=== PATIENT | female | born 2000 | race Hispanic/Latino ===

== ENCOUNTER 2022-08-22 11:50 | Day surgery (SDC) | payer OTHER ==
[2022-08-20 16:02] LABS: Mean Corpuscular HGB CONC 32.3 g/dL (32.0-36.0); Mean Corpuscular Hemoglobin 28.7 pg (27.0-33.0); Mean Corpuscular Volume 88.8 fl (81.6-98.3); Mean Platelet Volume 9.7 fl (7.4-10.4); Platelet Count 370 10x3/uL (150-450); RBC Distribution Width 13.2 % (11.5-14.5); Red Blood Cell (RBC) Count 4.18 10x6/uL (3.90-5.03); White Blood Cell (WBC) Count 7.8 10x3/uL (3.5-10.5)
[2022-08-20 16:17] LABS: BHCG - Serum Negative (NEGATIVE); Pregs Control Background? CLEAR/WHITE (CLR/WHITE); Pregs Control Bar Appear? YES (CONTROL BAR)
[2022-08-21 09:16] VITALS: BMI 35.5
[2022-08-22] MEDS ORDERED: Midazolam HCl 2 mg/2 ml Vial ONE ×3 (12:59→14:10)
[2022-08-22] MEDS ORDERED: Famotidine/PF 20 mg/2ml Vial ONE (13:00)
[2022-08-22] MEDS ORDERED: Scopolamine 1.5 mg/72 hour Patch ONE (13:00)
[2022-08-22] MEDS ORDERED: PROPOFOL 20 ML ONE (13:12)
[2022-08-22] MEDS ORDERED: Bupivacaine HCl 0.5%/Epinephrine 1:200,000/PF 30 ml Vial ONE (13:12)
[2022-08-22] MEDS ORDERED: Fentanyl 100 MCG/2 ML VIAL ONE (13:13)
[2022-08-22] MEDS ORDERED: Glycopyrrolate 0.2 MG/ML 5 ML SYRINGE ONE (13:13)
[2022-08-22] MEDS ORDERED: Ondansetron PF 4 MG/2 ML Vial ONE (13:13)
[2022-08-22] MEDS ORDERED: Ketorolac Tromethamine 30 MG/ML VIAL ONE (13:13)
[2022-08-22] MEDS ORDERED: Rocuronium Bromide 10 MG/ML (10ML VIAL) ONE (13:13)
[2022-08-22] MEDS ORDERED: Lidocaine 1% PF 5 ML VIAL ONE (13:13)
[2022-08-22] MEDS ORDERED: CEFAZOLIN 2 GM VIAL ONE (13:21)
[2022-08-22] MEDS ORDERED: Meperidine HCl/PF 25 MG/ML VIAL ONE (14:10)
== END 2022-08-22 16:20 | disposition home or self-care (01) ==
LOC: CSHSDC 11:50
PROVIDERS: ATTEND Obstetrics & Gynecology
PROC: 0UPD4HZ Removal of Contraceptive Device from Uterus and Cervix, Percutaneous Endoscopic Approach (ICD-10-PCS; principal; 2022-08-22)
DX: T83.39XA Other mechanical complication of intrauterine contraceptive device, initial encounter (principal); Y83.1 Surgical operation with implant of artificial internal device as the cause of abnormal reaction of the patient, or of later complication, without mention of misadventure at the time of the procedure
CPT/HCPCS: 36415; 84703; 85027; 86850; 86900; 86901; 88300; C1889; J1885; J2175; J2250; J2405; J2704; J3010; S0028